=== PATIENT | female | born 1940 | race Hispanic/Latino ===

== ENCOUNTER → 2022-02-20 | Outpatient (CLI) | payer MEDICARE ==
[~2022-02-20] MED LIST: BENICAR HCT 401 EACH PO; IBANDRONATE SO150 MG
== END ==
LOC: DX 08:59
DX: M85.88 Other specified disorders of bone density and structure, other site (principal)
CPT/HCPCS: 77080

== ENCOUNTER → 2024-02-23 | Outpatient (REF) | payer MEDICARE | LOC: DX 09:08 | PROVIDERS: ATTEND Internal Medicine | DX: M85.88 Other specified disorders of bone density and structure, other site (principal) | CPT/HCPCS: 77080 ==